=== PATIENT | male | born 1990 | race Caucasian/White ===

== ENCOUNTER 2017-10-24 16:55 | Emergency (ER) | payer SELFPAY ==
[~2017-10-24] VITALS: Ht 172.7 cm; Wt 58.0 kg
[2017-10-24 17:01] VITALS: Ht 172.7 cm; Wt 58.0 kg
[2017-10-24 17:45] VITALS: BP 110/70
== END 2017-10-24 17:45 | disposition home or self-care (01) ==
LOC: ED 16:55
DX: R07.89 Other chest pain (principal)